=== PATIENT | female | born 1950 | race Caucasian/White ===

== ENCOUNTER 2020-01-01 06:23 | Day surgery (SDC) | payer BC ==
[~2020-01-01 06:23] MED LIST: Proparacaine 0.5% Ophth Soln 15 ML Bottle ONE; Sodium Chloride 0.9% 10 ML Syringe FLUSH PRN
[2020-01-01] MEDS ORDERED: Midazolam 1 MG/ML 2 ML SDV IV ONE (06:24)
[2020-01-01] MEDS ORDERED: Dexamethasone 4 MG/ML SDV IV ONE (06:24)
[2020-01-01] MEDS ORDERED: Sodium Chloride 0.9% 10 ML Syringe IV ONE (06:24)
[2020-01-01] MEDS ORDERED: Tropicamide 1% Ophth Soln 15 ML Bottle EYELF ONE (06:30)
[2020-01-01] MEDS ORDERED: Proparacaine 0.5% Ophth Soln 15 ML Bottle EYELF ONE (06:30)
[2020-01-01] MEDS ORDERED: Povidone-Iodine 5% Sterile Ophth Soln 30 ML Bottle EYELF ONE ×2 (06:30→08:05)
[2020-01-01] MEDS ORDERED: Ondansetron 4 MG/2 ML SDV IVPUSH PRN (06:30)
[2020-01-01] MEDS ORDERED: Phenylephrine 10% Ophth Soln 5 ML Bot EYELF ONE (06:30)
[2020-01-01] MEDS ORDERED: Acetaminophen 325 MG Tab PO PRN (06:30)
[2020-01-01] MEDS ORDERED: Phenylephrine 10% Ophth Soln 5 ML Bot EYELF PRN (06:30)
[2020-01-01] MEDS ORDERED: Timolol Maleate 0.5% Ophth Soln 5 ML Bottle EYELF ONE (06:30)
[2020-01-01] MEDS ORDERED: Moxifloxacin 0.5% Ophth Soln 3 ML Bottle EYELF ONE (06:30)
[2020-01-01] MEDS ORDERED: Dilation Soln 1 EA EACH EYELF ONE (07:00)
[2020-01-01] MEDS ORDERED: Tetracaine HCl/PF 0.5% 4 ML Bottle EYELF ONE (08:04)
[2020-01-01] MEDS ORDERED: Lidocaine 1% 30 ML SDV ONE (08:05)
[2020-01-01] MEDS ORDERED: Dexamethasone/Neomycin/Polymyxin B Ophth Oint 3.5 GM Tube EYELF ONE (08:06)
[2020-01-01] MEDS ORDERED: Diclofenac Sodium 0.1% Ophth Soln 5 ML Bottle EYELF ONE (08:06)
[2020-01-01] MEDS ORDERED: Apraclonidine 0.5% Ophth Soln 5 ML Bot EYELF ONE (08:06)
[2020-01-01] MEDS ORDERED: Chondroitin Sulfate/Hyaluronate Sodium Ophth Inj 0.75 ML Syringe EYELF ONE (08:07)
[2020-01-01] MEDS ORDERED: Balanced Salt Solution Ophth Irrig 500 ML Bottle IOCULAR ONE (08:07)
[2020-01-01] MEDS ORDERED: Vancomycin 500 MG SDV EYELF ONE (08:07)
--- NOTE | 2020-01-02 09:14 | OR ---
DATE: 01/01/2020 PREOPERATIVE DIAGNOSIS: Visually significant mixed cataract, left eye. POSTOPERATIVE DIAGNOSIS: Visually significant mixed cataract, left eye. PROCEDURE: Extracapsular cataract extraction with intraocular lens implant, left eye. ANESTHESIA: Topical/local MAC. COMPLICATIONS: None. INDICATION: Ms. Christiansen was seen in the clinic. She is unhappy with her vision noticing a slow progressive change. Examination revealed visually significant mixed cataract. I explained options, offered cataract surgery and I explained risks preoperatively including, but not limited to, infection, retinal detachment, loss of vision, need for additional surgery, risks associated with anesthesia, amongst others. We discussed implant options. She has requested a monofocal implant. She understands that she may require glasses for some activities following surgery. OPERATIVE DESCRIPTION: After informed consent was obtained and the risks, benefits, and alternatives were explained, the patient was brought to the operative suite and topical anesthesia was administered. The patient was then prepped and draped in the sterile fashion and attention was placed on the left eye. A sterile lid speculum was placed into the left eye to allow operative exposure. A full-thickness paracentesis was made in the temporal portion of the operative eye. Preservative-free lidocaine 0.1 mL was injected into the anterior chamber followed by viscoelastic. A full-thickness corneal incision was then made into the anterior chamber. A bent needle cystotome was used to create a small rafael in the anterior capsule. The capsulorrhexis forceps was then used to create a 360-degree curvilinear capsulorrhexis. The nucleus was then removed using a phacoemulsification handpiece and the remaining cortical material was then removed with irrigation and aspiration handpiece. Following removal of the cortical material, the capsular bag was then inspected and noted to be free of any holes or tears. Viscoelastic was then injected into the capsular bag and the intraocular lens was inserted into the capsular bag. The viscoelastic material was then removed from both the anterior and posterior chambers and from behind the IOL. The lens and capsular bag were then reinspected. The IOL was well centered and the capsular bag intact. The wound and paracentesis sites were inspected and hydrated with balanced saline solution. Both were found to be self- sealing. The intraocular pressure was assessed digitally and found to be within normal range. A good red reflex was noted at the completion of the procedure. No complications occurred during the operation. At the completion of the procedure, Sergio Voltaren, and Iopidine drops were placed into the operative eye. A sterile eye shield was placed over the operative eye and the patient was transported to the postoperative recovery area having tolerated the procedure well. Postoperative instructions were given along with a postoperative appointment. The patient was advised to call with any questions or concerns. [facility] /[id number]
== END 2020-01-01 09:15 | disposition home or self-care (01) ==
LOC: DL.SDS 06:23
PROVIDERS: ATTEND Ophthalmology
DX: E11.36 Type 2 diabetes mellitus with diabetic cataract (principal); H25.813 Combined forms of age-related cataract, bilateral; I10 Essential (primary) hypertension; Z79.899 Other long term (current) drug therapy; Z88.0 Allergy status to penicillin; Z88.8 Allergy status to other drugs, medicaments and biological substances
CPT/HCPCS: 00142; A9270-GY; J1100; J2001; J2250; J3370; V2632

== ENCOUNTER 2020-01-08 06:24 | Day surgery (SDC) | payer BC ==
[2020-01-08] MEDS ORDERED: Dexamethasone 4 MG/ML SDV IV ONE (06:25)
[2020-01-08] MEDS ORDERED: Sodium Chloride 0.9% 10 ML Syringe IV ONE (06:25)
[2020-01-08] MEDS ORDERED: Midazolam 1 MG/ML 2 ML SDV IV ONE (06:25)
[2020-01-08] MEDS ORDERED: Dilation Soln 1 EA EACH EYERT ONE (06:30)
[2020-01-08] MEDS ORDERED: Ondansetron 4 MG/2 ML SDV IVPUSH PRN (06:30)
[2020-01-08] MEDS ORDERED: Proparacaine 0.5% Ophth Soln 15 ML Bottle EYERT ONE (06:30)
[2020-01-08] MEDS ORDERED: Timolol Maleate 0.5% Ophth Soln 5 ML Bottle EYERT ONE (06:30)
[2020-01-08] MEDS ORDERED: Acetaminophen 325 MG Tab PO PRN (06:30)
[2020-01-08] MEDS ORDERED: Tropicamide 1% Ophth Soln 15 ML Bottle EYERT ONE (06:30)
[2020-01-08] MEDS ORDERED: Phenylephrine 10% Ophth Soln 5 ML Bot EYERT ONE ×2 (06:30→07:59)
[2020-01-08] MEDS ORDERED: Povidone-Iodine 5% Sterile Ophth Soln 30 ML Bottle EYERT ONE ×2 (06:30→07:59)
[2020-01-08] MEDS ORDERED: Moxifloxacin 0.5% Ophth Soln 3 ML Bottle EYERT ONE (06:30)
[2020-01-08] MEDS ORDERED: Phenylephrine 10% Ophth Soln 5 ML Bot EYERT PRN (06:30)
[2020-01-08] MEDS ORDERED: Lidocaine 1% 30 ML SDV ONE (07:58)
[2020-01-08] MEDS ORDERED: Tetracaine HCl/PF 0.5% 4 ML Bottle EYERT ONE (07:58)
[2020-01-08] MEDS ORDERED: Diclofenac Sodium 0.1% Ophth Soln 5 ML Bottle EYERT ONE (07:59)
[2020-01-08] MEDS ORDERED: Apraclonidine 0.5% Ophth Soln 5 ML Bot EYERT ONE (07:59)
[2020-01-08] MEDS ORDERED: Chondroitin Sulfate/Hyaluronate Sodium Ophth Inj 0.75 ML Syringe EYERT ONE (08:00)
[2020-01-08] MEDS ORDERED: Balanced Salt Solution Ophth Irrig 500 ML Bottle IOCULAR ONE (08:01)
[2020-01-08] MEDS ORDERED: Vancomycin 500 MG SDV EYERT ONE (08:01)
--- NOTE | 2020-01-08 13:44 | OR ---
DATE: 01/08/2020 PREOPERATIVE DIAGNOSIS: Visually significant mixed cataract, right eye. POSTOPERATIVE DIAGNOSIS: Visually significant mixed cataract, right eye. PROCEDURE: Extracapsular cataract extraction with intraocular lens implant, right eye. ANESTHESIA: Topical/local MAC. COMPLICATIONS: None. INDICATION: Ms. Christiansen was seen in the clinic. The examination revealed visually significant mixed cataract. She is unhappy with her vision and requested cataract surgery. I explained options, offered cataract surgery, and I explained risks preoperatively including, but not limited to, infection, retinal detachment, loss of vision, need for additional surgery, and risks associated with anesthesia including loss of life. We discussed implant options. She has requested a monofocal implant. OPERATIVE DESCRIPTION: After informed consent was obtained and the risks, benefits, and alternatives were explained, the patient was brought to the operative suite and topical anesthesia was administered. The patient was then prepped and draped in the sterile fashion and attention was placed on the right eye. A sterile lid speculum was placed into the right eye to allow operative exposure. A full-thickness paracentesis was made in the temporal portion of the operative eye. Preservative-free lidocaine 0.1 mL was injected into the anterior chamber followed by viscoelastic. A full-thickness corneal incision was then made into the anterior chamber. A bent needle cystotome was used to create a small rafael in the anterior capsule. The capsulorrhexis forceps was then used to create a 360-degree curvilinear capsulorrhexis. The nucleus was then removed using a phacoemulsification handpiece and the remaining cortical material was then removed with irrigation and aspiration handpiece. Following removal of the cortical material, the capsular bag was then inspected and noted to be free of any holes or tears. Viscoelastic was then injected into the capsular bag and the intraocular lens was inserted into the capsular bag. The viscoelastic material was then removed from both the anterior and posterior chambers and from behind the IOL. The lens and capsular bag were then reinspected. The IOL was well centered and the capsular bag intact. The wound and paracentesis sites were inspected and hydrated with balanced saline solution. Both were found to be self- sealing. The intraocular pressure was assessed digitally and found to be within normal range. A good red reflex was noted at the completion of the procedure. No complications occurred during the operation. At the completion of the procedure, Maxitrol, Voltaren, and Iopidine drops were placed into the operative eye. A sterile eye shield was placed over the operative eye and the patient was transported to the postoperative recovery area having tolerated the procedure well. Postoperative instructions were given along with a postoperative appointment. The patient was advised to call with any questions or concerns. [facility] /[id number]
== END 2020-01-08 09:14 | disposition home or self-care (01) ==
LOC: DL.SDS 06:24
PROVIDERS: ATTEND Ophthalmology
DX: H25.813 Combined forms of age-related cataract, bilateral (principal); I10 Essential (primary) hypertension; Z79.899 Other long term (current) drug therapy; Z88.1 Allergy status to other antibiotic agents; Z88.8 Allergy status to other drugs, medicaments and biological substances
CPT/HCPCS: 00140; J1100; J2001; J2250; J3370; V2632

== ENCOUNTER 2020-04-06 05:49 | Day surgery (SDC) | payer BC ==
[2020-04-06] MEDS ORDERED: Midazolam 1 MG/ML 2 ML SDV ONE (06:16)
[2020-04-06] MEDS ORDERED: fentaNYL 100 MCG/2 ML SDV ONE (06:16)
[2020-04-06] MEDS ORDERED: Dextrose 5%-0.45% NaCl 1,000 ML IV SCH (06:30)
[2020-04-06] MEDS ORDERED: fentaNYL 100 MCG/2 ML SDV IV ONE ×2 (07:06→07:07)
[2020-04-06] MEDS ORDERED: Midazolam 1 MG/ML 2 ML SDV IV ONE ×2 (07:07→07:08)
--- NOTE | 2020-04-06 08:48 | OR ---
DATE: 04/06/2020 PROCEDURES: 1. Esophagogastroduodenoscopy. 2. Narrow-band imaging. 3. Multiple pinch biopsies. INSTRUMENT USED: GIF-HQ190 Olympus video panendoscope. PREMEDICATIONS: No oral or topical anesthesia was used. Fentanyl 100 mcg intravenous, Versed 2 mg intravenous, and nasal O2 cannula. The procedure was done under pulse oximetry, BP recording, and phototypesetting equipment monitor. INDICATION: The patient with unexplained iron-deficiency anemia. Esophagogastroduodenoscopy is performed for detection of any active erosive lesions, Fritz esophagus and/or malignancy also under consideration, H pylori status to be determined, small bowel biopsies for celiac disease if indicated, and endoscopic hemostasis therapy if needed. DESCRIPTION OF PROCEDURE: The scope was passed with ease. Adequate visualization of the esophagus was made from the proximal to the distal areas. No upper esophageal lesions were identified. No distal esophageal stricture. No uphill or downhill esophageal varices. No Amanda-Mcdaniel tear. No evidence of erosive esophagitis by [place] criteria. No esophageal polyp or tumor mass was identified. A sliding hiatal hernia was noted. The Z-line was seen at around 36 cm distal to the oral verge. No proximal gastric varices were noted. 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 No gastric ulcer, malignant mass, or vascular ectasia was identified. Scattered gastric antral erosions were noted without bleeding from them. The duodenal bulb showed no ulcer. The visualized second part of the duodenum was remarkable. NBI views were obtained of the gastric fundus. Multiple pinch biopsies were taken from the gastric antrum and proximal body and sent for PyloriTek test for H pylori, and if negative in an hour, the tissues are to be sent for histopathology. No bleeding was noted from any of the visualized areas at the completion of the examination. Photographs were taken of the duodenal bulb, gastric antrum, fundus, and distal esophagus. IMPRESSION: 1. Sliding hiatal hernia. 2. Brian's erosions. 3. Gastric antral erosions. The patient tolerated the procedure well. [facility] /[id number]
== END 2020-04-06 09:27 | disposition home or self-care (01) ==
LOC: DL.ENDO 05:49
PROVIDERS: ATTEND Internal Medicine Gastroenterology
DX: K25.9 Gastric ulcer, unspecified as acute or chronic, without hemorrhage or perforation (principal); D50.9 Iron deficiency anemia, unspecified; K44.9 Diaphragmatic hernia without obstruction or gangrene; E66.09 Other obesity due to excess calories; I10 Essential (primary) hypertension; F41.1 Generalized anxiety disorder; Z86.19 Personal history of other infectious and parasitic diseases; Z88.0 Allergy status to penicillin; Z88.8 Allergy status to other drugs, medicaments and biological substances; Z68.36 Body mass index [BMI] 36.0-36.9, adult
CPT/HCPCS: 43239; 87077; J2250; J3010; J7042

== ENCOUNTER 2023-10-14 04:51 | Emergency (ER) | payer SELFPAY ==
[2023-10-14] MEDS: HYDROmorphone 1 MG/ML Syringe IM ONE ×2 (05:09→06:43)
[2023-10-14] MEDS: diphenhydrAMINE 25 MG Tab PO ONE (06:00)
== END 2023-10-14 08:41 ==
LOC: DL.ED 04:51
DX: M79.672 Pain in left foot (principal); I10 Essential (primary) hypertension; Z86.16 Personal history of COVID-19; Z79.899 Other long term (current) drug therapy; Z88.0 Allergy status to penicillin; Z88.8 Allergy status to other drugs, medicaments and biological substances
CPT/HCPCS: 96372; 99284; A9270; J1170; 99283

== ENCOUNTER 2024-11-12 15:44 | Emergency (ER) | payer MEDICARE, OTHER | END 2024-11-12 16:26 | disposition home or self-care (01) | LOC: DL.ED 15:44 | DX: S00.83XA Contusion of other part of head, initial encounter (principal); I10 Essential (primary) hypertension; Z79.899 Other long term (current) drug therapy; Z88.0 Allergy status to penicillin; Z88.8 Allergy status to other drugs, medicaments and biological substances; W54.1XXA Struck by dog, initial encounter; Y92.009 Unspecified place in unspecified non-institutional (private) residence as the place of occurrence of the external cause; Y93.01 Activity, walking, marching and hiking | CPT/HCPCS: 99283 ==

== ENCOUNTER 2025-01-16 09:44 | Emergency (ER) | payer MEDICARE, OTHER ==
[2025-01-16] MEDS ORDERED: Sodium Chloride 0.9% 10 ML Syringe FLUSH PRN (10:06)
[2025-01-16 10:12] LABS: BASOPHILS PERCENT AUTO 0.4 % (0.0-1.0); EOSINOPHILS PERCENT AUTO 0.6 % (1.0-3.0); LYMPHOCYTES PERCENT AUTO 18.1 % (20.5-50.1); MONOCYTES PERCENT AUTO 10.1 % (2-8); NEUTROPHILS PERCENT AUTO 70.8 % (42.2-75.2); PLATELET COUNT,PLT 415 10^3/uL (150-450); RED BLOOD CELL COUNT 3.23 10^6/uL (4.2-5.4); WHITE BLOOD CELL COUNT,WBC 8.2 10^3/uL (5.0-10.0)
[2025-01-16] MEDS: Ondansetron 4 MG/2 ML SDV ONE (10:12)
[2025-01-16] MEDS: Ketorolac 30 MG/ML SDV IVPUSH ONE (10:13)
[2025-01-16] MEDS: Ondansetron 4 MG/2 ML SDV IVPUSH ONE (10:14)
[2025-01-16 10:29] LABS: INR 0.9 (0.9-1.2)
[2025-01-16 10:34] LABS: A/G RATIO 1.0; ALANINE AMINOTRANSFERASE,ALT 21 U/L (14-59); ASPARTATE AMNIOTRANSFERASE,AST 21 U/L (15-37); BILIRUBIN TOTAL 0.5 mg/dL (0.2-1.0); BLOOD UREA NITROGEN,BUN 13 mg/dL (7-18); CARBON DIOXIDE,CO2 26 mmol/L (21-32); CHLORIDE,CL 100 mmol/L (98-107); CREATININE 0.86 mg/dL (0.55-1.02); EST CRCL DRUG DOSING (CG) 42.47 mL/min; GLUCOSE RANDOM 158 mg/dL (70-99); POTASSIUM,K 3.9 mmol/L (3.5-5.1); PROTEIN TOTAL,TP 7.4 g/dL (6.4-8.2); SODIUM,NA 138 mmol/L (136-145)
[2025-01-16 10:35] LABS: ESTIMATED GFR 72 mL/min (>=60); LACTIC ACID 3.1 mmol/L (0.4-2.0)
[2025-01-16] MEDS: Midazolam 1 MG/ML 2 ML SDV IVPUSH ONE (10:38)
[2025-01-16] MEDS: Iopamidol 612 MG/ML 100 ML Bottle IVPUSH ONE (11:30)
[2025-01-16] MEDS: propofoL 1,000 MG/100 ML 100 ML ONE (11:52)
[2025-01-16] MEDS: Midazolam 5 MG/ML 10 ML MDV ONE (11:53)
[2025-01-16] MEDS: fentaNYL 100 MCG/2 ML SDV ONE (11:53)
[2025-01-16 12:13] LABS: APPEARANCE,URINE CLEAR (CLEAR); GLUCOSE,URINE NEGATIVE (NEGATIVE); OCCULT BLOOD,URINE TRACE-INTACT (NEGATIVE)
[2025-01-16 12:32] LABS: EPITHELIAL CELLS,URINE RARE /HPF (NOT SEEN)
== END 2025-01-16 15:20 | disposition home or self-care (01) ==
LOC: DL.ED 09:44
DX: K52.9 Noninfective gastroenteritis and colitis, unspecified (principal); K44.9 Diaphragmatic hernia without obstruction or gangrene; I10 Essential (primary) hypertension; Z88.0 Allergy status to penicillin; Z88.8 Allergy status to other drugs, medicaments and biological substances; Z79.899 Other long term (current) drug therapy
CPT/HCPCS: 36415; 71260; 74177; 80053; 81001; 83605; 83690; 83735; 84145; 84484; 85025; 85379; 85610; 93005; 93010; 96361; 96372; 96374; 96375; 96376; 99284; J1885; J2250; J2270; J2405; J7030; Q9967; J2765

== ENCOUNTER 2025-01-16 20:13 | Emergency (ER) | payer MEDICARE, OTHER ==
[2025-01-16] MEDS: Ondansetron 4 MG/2 ML SDV IVPUSH ONE (21:41)
[2025-01-16] MEDS: Ketorolac 30 MG/ML SDV IVPUSH ONE (21:42)
[2025-01-16 21:49] LABS: BASOPHILS PERCENT AUTO 0.2 % (0.0-1.0); EOSINOPHILS PERCENT AUTO 0.5 % (1.0-3.0); LYMPHOCYTES PERCENT AUTO 20.2 % (20.5-50.1); MONOCYTES PERCENT AUTO 9.6 % (2-8); NEUTROPHILS PERCENT AUTO 69.5 % (42.2-75.2); PLATELET COUNT,PLT 354 10^3/uL (150-450); RED BLOOD CELL COUNT 2.92 10^6/uL (4.2-5.4); WHITE BLOOD CELL COUNT,WBC 8.6 10^3/uL (5.0-10.0)
[2025-01-16 22:25] LABS: A/G RATIO 1.0; ALANINE AMINOTRANSFERASE,ALT 17.0 U/L (14-59); ASPARTATE AMNIOTRANSFERASE,AST 21.0 U/L (15-37); BILIRUBIN TOTAL 0.4 mg/dL (0.2-1.0); BLOOD UREA NITROGEN,BUN 16.0 mg/dL (7-18); CARBON DIOXIDE,CO2 25.0 mmol/L (21-32); CHLORIDE,CL 99.0 mmol/L (98-107); CREATININE 0.81 mg/dL (0.55-1.02); EST CRCL DRUG DOSING (CG) 47.37 mL/min; GLUCOSE RANDOM 105.0 mg/dL (70-99); POTASSIUM,K 4.0 mmol/L (3.5-5.1); PROTEIN TOTAL,TP 6.7 g/dL (6.4-8.2); SODIUM,NA 135.0 mmol/L (136-145)
[2025-01-16 22:27] LABS: ESTIMATED GFR 77.0 mL/min (>=60)
[2025-01-16 22:29] LABS: LACTIC ACID 1.6 mmol/L (0.4-2.0)
[2025-01-17 03:48] LABS: APPEARANCE,URINE CLEAR (CLEAR); GLUCOSE,URINE NEGATIVE (NEGATIVE); OCCULT BLOOD,URINE TRACE-INTACT (NEGATIVE)
[2025-01-17 03:59] LABS: SQUAMOUS EPITHELIAL CELLS,UR RARE /HPF (NOT SEEN)
== END 2025-01-17 04:55 | disposition home or self-care (01) ==
LOC: DL.ED 20:13
DX: K52.9 Noninfective gastroenteritis and colitis, unspecified (principal); I10 Essential (primary) hypertension; Z88.0 Allergy status to penicillin; Z88.8 Allergy status to other drugs, medicaments and biological substances; Z79.899 Other long term (current) drug therapy
CPT/HCPCS: 36415; 80053; 81001; 83605; 83690; 83735; 84484; 85025; 96361; 96372; 96374; 96375; 96376; 99284; J1885; J2270; J2405; J2765; J7030; 93010